=== PATIENT | male | born 1965 | race Caucasian/White ===

== ENCOUNTER 2023-03-31 17:13 | Emergency (ER) | payer OTHER, BC ==
[2023-03-31] MEDS: Ibuprofen 800 MG Tab PO ONE (18:39)
[2023-03-31] MEDS: Acetaminophen 500 MG Tab PO ONE (18:39)
== END 2023-03-31 19:34 | disposition home or self-care (01) ==
LOC: FB.ED 17:13
DX: S53.401A Unspecified sprain of right elbow, initial encounter (principal); E78.00 Pure hypercholesterolemia, unspecified; I10 Essential (primary) hypertension; E11.9 Type 2 diabetes mellitus without complications; Z88.8 Allergy status to other drugs, medicaments and biological substances; Z79.84 Long term (current) use of oral hypoglycemic drugs; Z79.82 Long term (current) use of aspirin; Z79.899 Other long term (current) drug therapy; X50.9XXA Other and unspecified overexertion or strenuous movements or postures, initial encounter; Y92.89 Other specified places as the place of occurrence of the external cause; Y99.0 Civilian activity done for income or pay
CPT/HCPCS: 73080-RT; 99283